=== PATIENT | female | born 1970 | race Caucasian/White ===

== ENCOUNTER 2020-07-16 11:47 | Outpatient (REF) | payer SELFPAY ==
[2020-07-22 02:02] LABS: SARS-CoV-2 RNA Undetected (Undetected); SARS-CoV-2 Specimen Source Nasal
== END 2020-07-16 12:07 ==
LOC: NCHCN 11:47
PROVIDERS: Visit Provider Internal Medicine
DX: Z20.828 Contact with and (suspected) exposure to other viral communicable diseases (principal)
CPT/HCPCS: U0003